=== PATIENT | male | born 1940 | race Caucasian/White ===

== ENCOUNTER → 2018-09-08 | Outpatient (CLI) | payer MEDICARE ==
[2018-09-08 10:34] LABS: HEMATOCRIT 38 % (40-54); HEMOGLOBIN 12.5 G/DL (13.3-17.7); MEAN CORPUSCULAR HEMOGLOBIN 32 PG (25-34); MEAN CORPUSCULAR HGB CONC 33 G/DL (32-36); MEAN CORPUSCULAR VOLUME 97 FL (80-99); RED CELL DISTRIBUTION WIDTH 12.5 % (10.0-14.5); WHITE BLOOD COUNT 5.4 10^3/uL (4.3-11.0)
[2018-09-08 10:35] LABS: BASOPHILS % (AUTO) 1 % (0-10); EOSINOPHILS # (AUTO) 0.1 10^3/uL (0.0-0.3); EOSINOPHILS % (AUTO) 1 % (0-10); LYMPHOCYTES # (AUTO) 1.1 X 10^3 (1.0-4.0); LYMPHOCYTES % (AUTO) 19 % (12-44); MEAN PLATELET VOLUME 10.6 FL (7.4-10.4); MONOCYTES # (AUTO) 0.5 X 10^3 (0.0-1.0); MONOCYTES % (AUTO) 9 % (0-12); NEUTROPHILS # (AUTO) 3.7 X 10^3 (1.8-7.8); NEUTROPHILS % (AUTO) 69 % (42-75); PLATELET COUNT 208 10^3/uL (130-400)
[2018-09-08 10:47] LABS: POTASSIUM 4.2 MMOL/L (3.6-5.0); SODIUM 140 MMOL/L (135-145)
[2018-09-08 10:48] LABS: ALANINE AMINOTRANSFERASE 11 U/L (0-55); ALBUMIN 4.7 GM/DL (3.2-4.5); ALKALINE PHOSPHATASE 58 U/L (40-136); BILIRUBIN,TOTAL 0.6 MG/DL (0.1-1.0); BUN/CREATININE RATIO 13; CALCIUM 9.2 MG/DL (8.5-10.1); CARBON DIOXIDE 27 MMOL/L (21-32); CHLORIDE 102 MMOL/L (98-107); CREATININE SERUM 0.84 MG/DL (0.60-1.30); GFR ESTIMATED > 60; GLUCOSE 94 MG/DL (70-105); TOTAL PROTEIN 6.9 GM/DL (6.4-8.2)
--- NOTE | 2018-09-08 11:16 | Diagnostic Imaging Report ---
PROCEDURE: CT chest without contrast. TECHNIQUE: Multiple contiguous axial images were obtained through the chest without the use of intravenous contrast. Auto Exposure Controls were utilized during the CT exam to meet ALARA standards for radiation dose reduction. INDICATION: Lung cancer with previous right-sided lobectomy. FINDINGS: There are postthoracotomy changes to the right ribs posteriorly. No acute chest wall pathology. Single lobe in the right is present believed to be the lower lobe. This contains a densely calcified benign nodule measuring 11 mm. There are postsurgical changes to the right pulmonary hilum. There is a focal largely airspace opacity in the lingular segment of the left upper lobe measuring 12 mm. This did not have a significant soft tissue component; however, given the history and the absence of priors to confirm its stability, I would suggest that lesion's followup in 3-6 months. There are no pathological appearing thoracic lymph nodes. The aorta is nonaneurysmal. There are coronary arterial atherosclerotic calcifications. There is no pleural or pericardial effusion. The upper abdomen demonstrates probable right renal parapelvic cysts, nonfocal adrenals and apparent cyst in the left lobe of the liver anteriorly measuring 1 cm. IMPRESSION: 1. A subsolid airspace density in lingular segment of the left upper lobe anteriorly 12 mm, likely a focal area of scarring, atelectasis or on an inflammatory basis. Neoplasm could not be definitively excluded and given the absence of priors, followup CT within 6 months time recommended. 2. Postoperative change on the right. No thoracic effusion or lymphadenopathy. Dictated by: Dictated on workstation # [id number]
== END ==
LOC: RAD FS 09:52
PROVIDERS: ATTEND Internal Medicine Hematology & Oncology
DX: C34.11 Malignant neoplasm of upper lobe, right bronchus or lung (principal); Z90.2 Acquired absence of lung [part of]
CPT/HCPCS: 36415; 71250; 80053; 83615; 85025

== ENCOUNTER 2019-03-05 20:23 | Emergency (ER) | payer MEDICARE ==
[~2019-03-05] VITALS: Ht 172.7 cm; Wt 76.1 kg
[2019-03-05] MEDS ORDERED: predniSONE 20 MG TAB PO ONE (20:45)
--- NOTE | 2019-03-05 20:45 | ED EENT ---
History of Present Illness General Chief Complaint: Oral/Throat Problems Stated Complaint: SORENESS IN THROAT- THINKS SOMETHING IS STUCK Source: patient, family Exam Limitations: no limitations History of Present Illness Date Seen by Provider: Mar 05, 2019 Time Seen by Provider: 20:40 Initial Comments feeling of something swelling in the back of his throat.....moving around. No difficulty breathing or swallowing. Denies that he swallowed anything or concern that something is lodged in throat Allergies and Home Medications Allergies Coded Allergies: No Known Drug Allergies (Unverified , 03/05/19) Home Medications Prednisone 50 Mg Tab, 50 MG PO DAILY Prescribed by: JAY SANTIAGO on 03/05/192045 Patient Home Medication List Home Medication List Reviewed: Yes Review of Systems Review of Systems Constitutional: No dizziness, No fever, No malaise Nose: denies congestion, denies epistaxis, denies pain Mouth: denies loose teeth, denies pain; swelling; denies bloody discharge, denies clear discharge, denies purulent discharge, denies serosanguinous discharge, denies previous injury Throat: see HPI; denies pain; swelling; denies discharge, denies neck stiffness, denies hoarse, denies aphonia, denies muffled, denies painful swallowing, denies difficulty with fluids, denies previous injury Respiratory: see HPI; No cough, No dyspnea on exertion, No hemoptysis, No orthopnea, No phlegm, No short of breath, No stridor, No wheezing Cardiovascular: no symptoms reported Gastrointestinal: no symptoms reported Past Cmetblb-Jszlbj-Yurvoz Hx Past Med/Social Hx: Reviewed Nursing Past Med/Soc Hx Patient Social History Recent Foreign Travel: No Contact w/Someone Who Travel: No Physical Exam Vital Signs Vital Signs - First Documented 03/05/19 20:25 Temp 37.3 Pulse 108 Resp 18 B/P (MAP) 153/93 (113) Pulse Ox 98 O2 Delivery Room Air Height, Weight, BMI Height: '" Weight: lbs. oz. kg; BMI Method: General Appearance: WD/WN, no apparent distress; No mild distress Nose: normal inspection Mouth/Throat: No dental tenderness, No excessive drooling, No foreign body, No mandibular swelling, No maxillary swelling, No pharynx swelling, No tongue swollen, No tonsillar swelling, No trismus; uvula swelling; No voice changes Neck: non-tender, full range of motion, supple, normal inspection Cardiovascular: regular rate, rhythm Respiratory: chest non-tender, lungs clear, normal breath sounds Progress/Results/Core Measures Results/Orders My Orders Orders - JAY SANTIAGO DO Prednisone Tablet (Deltasone Tablet) (03/05/19 20:45) Medications Given in ED Current Medications Medications Dose Ordered Sig/Blessing Route Start Time Stop Time Status Last Admin Dose Admin Prednisone 50 mg ONCE ONCE PO 03/05/19 20:45 03/05/19 20:46 DC 03/05/19 20:54 50 MG Vital Signs/I&O 03/05/19 20:25 Temp 37.3 Pulse 108 Resp 18 B/P (MAP) 153/93 (113) Pulse Ox 98 O2 Delivery Room Air Departure Impression Primary Impression: Uvulitis Disposition: 01 HOME, SELF-CARE Condition: Stable Departure-Patient Inst. Decision time for Depature: 20:46 Referrals: MAGNOLIA LENNON MD (PCP/Family) Primary Care Physician Patient Instructions: Viral Pharyngitis (DC) Scripts Prednisone (Prednisone) 50 Mg Tab 50 MG PO DAILY, #5 TAB Prov: JAY SANTIAGO DO 03/05/19 JAY SANTIAGO DO Mar 05, 2019 20:44 POS
[2019-03-05] MEDS ORDERED: PRD50T PO (20:46)
[2019-03-05 21:26] VITALS: BP 153/93
== END 2019-03-05 21:26 | disposition home or self-care (01) ==
LOC: EDUNIT# 20:23 → ER FS 20:24
DX: K12.2 Cellulitis and abscess of mouth (principal)
CPT/HCPCS: 99283

== ENCOUNTER → 2019-04-23 | Outpatient (CLI) | payer MEDICARE ==
[~2019-04-23] MED LIST: PRD50T PO
--- NOTE | 2019-04-23 11:00 | Diagnostic Imaging Report ---
CT CHEST WO TECHNIQUE: Multiple contiguous axial images were obtained through the chest without the use of intravenous contrast. All CT scans use one or more of the following dose optimizing techniques: automated exposure control, MA and/or KvP adjustment based on a patient size and exam type, or iterative reconstruction. INDICATION: Lung cancer. Surveillance imaging. COMPARISON: 09/08/2018 FINDINGS: Lungs and airway: No endoluminal nodule within the trachea. Stable postoperative changes of right middle and upper lobectomies. There is compensatory hyperaeration of the right lower lobe. Calcified granuloma within the right posterior midlung zone is unchanged. The spiculated nodular focus of scarring/atelectasis within the lingula is unchanged measuring 12 mm in size. No new pulmonary nodule or mass to suggest recurrent or metastatic disease. Pleura: No pleural effusion or pneumothorax. Heart and mediastinum: No supraclavicular or axillary lymphadenopathy. No mediastinal, hilar or juxtaphrenic lymphadenopathy. The distal esophagus is normal in appearance. Ectatic ascending aorta measuring 4.8 cm is stable in size. Coronary artery calcifications are unchanged. Upper abdomen: There are 2 simple cysts within the liver that are stable and less than 1 cm in size. Indeterminate 3 cm hypodensity in the posterior inferior right hepatic lobe is stable. Musculoskeletal: No lytic or blastic skeletal lesions. IMPRESSION: 1. No change in CT chest to indicate recurrent or metastatic disease. 2. Stable indeterminate 3 cm hypodensity in the posterior right hepatic lobe. This may represent benign process but does not meet criteria for simple cyst. If prior outside imaging is available, this would be most beneficial to assess long-term stability. Otherwise, recommend CT of abdomen with and without contrast per the liver protocol for prior assessment. Dictated by: Dictated on workstation # [id number]
== END ==
LOC: RAD FS 09:42
PROVIDERS: ATTEND Internal Medicine Hematology & Oncology
DX: C34.11 Malignant neoplasm of upper lobe, right bronchus or lung (principal); K76.89 Other specified diseases of liver
CPT/HCPCS: 71250

== ENCOUNTER 2021-08-13 08:11 | Observation (INO) | payer MEDICARE ==
[~2021-08-13] VITALS: Ht 180 cm; Wt 72.0 kg
[2021-08-13] VITALS (8 sets, daily range): BP systolic 134–180; BP diastolic 76–103
--- NOTE | 2021-08-13 08:31 | ED Neurological Problem ---
General Stated Complaint: STROKE-LIKE SYMPTOMS History of Present Illness Date Seen by Provider: August 13, 2021 Time Seen by Provider: 08:18 Initial Comments 80-year-old male brought in due to some confusion. Patient was brought in by his son. Patient reports that normally [place] the [place] and comes by his son's house. That he did not show up this morning so the son went by to check on him. Reports that he is got some mild new left- sided facial droop, and some confusion. Patient reports that his coffee was made in his breakfast without cold but he did eat it. He reports that he normally gets up around 5 to 5:30 AM. Patient was last seen normal around last night. He has some mild difficulty with his gait. Patient son states that he is just not acting himself and is much more confused than normal. Allergies and Home Medications Allergies Coded Allergies: No Known Drug Allergies (Unverified , 03/05/19) Patient Home Medication List Home Medication List Reviewed: Yes Prednisone (Prednisone) 50 Mg Tab, 50 MG PO DAILY Prescribed by: JAY SANTIAGO on 03/05/192045 Review of Systems Review of Systems Constitutional: see HPI; No chills, No fever Eyes: No Symptoms Reported Ears, Nose, Mouth, Throat: see HPI Respiratory: No cough, No short of breath Cardiovascular: No chest pain, No palpitations Gastrointestinal: No abdominal pain, No nausea, No vomiting Genitourinary: no symptoms reported Musculoskeletal: see HPI Skin: no symptoms reported Psychiatric/Neurological: See HPI, Weakness Endocrine: No Symptoms Reported Past Wzxytfq-Evehcr-Xfpfho Hx Seasonal Allergies Seasonal Allergies: No Past Medical History Surgeries: Yes (Right Hip) Appendectomy Respiratory: No Cardiac: No Neurological: No Genitourinary: No Gastrointestinal: No Musculoskeletal: No Endocrine: No HEENT: No Cancer: Yes Lung Psychosocial: No Integumentary: No Physical Exam Vital Signs Vital Signs - First Documented 08/13/21 08:16 Temp 36.3 Pulse 65 Resp 20 B/P (MAP) 187/93 (124) Pulse Ox 96 O2 Delivery Room Air Capillary Refill : Height, Weight, BMI Height: '" Weight: lbs. oz. kg; 25.00 BMI Method: General Appearance: WD/WN, no apparent distress HEENT: PERRL/EOMI Neck: non-tender Respiratory: lungs clear, normal breath sounds, no respiratory distress Cardiovascular: normal peripheral pulses, regular rate, rhythm Gastrointestinal: non tender, soft Extremities: normal range of motion Neurologic/Psychiatric: alert; No sensory deficit Crainal Nerves: normal hearing, PERRL, facial asymmetry (mild left sided droop ) Coordination/Gait: abnormal gait (unsteady) Motor/Sensory: no motor deficit, no sensory deficit Skin: normal color, warm/dry Stroke NIH Stroke Scale Assessment Select: Initial Level of Consciousness: 0=Alert (0), Level of Consciousness- Questions: 0=Answers both month/age (0), LOC Commands: 0=Performs both tasks (0), Gaze: Normal (0), Visual Shrestha: 0=No visual loss (0), Facial Movement (Facial Paresis): 1=Minor paralysis (1), Motor Function-Arms Right: 0=No drift (0), Motor Function-Arms Left: 0=No drift (0), Motor Function-Legs Right: 0=No drift (0), Motor Function-Legs Left: 0=No drift (0), Limb Ataxia: 0=Absent (0), Sensory: 0=Normal:no loss (0), Best Language: 1=Mild to moderat aphasia (1), Dysarthria: 0=Normal (0), Extinction & Inattention: 0=No abnormality (0), Total: 2 Progress/Results/Core Measures Results/Orders Lab Results Laboratory Tests Test 08/13/21 08:18 08/13/21 08:33 Range/Units White Blood Count 5.6 4.3-11.0 10^3/uL Red Blood Count 3.95 L 4.30-5.52 10^6/uL Hemoglobin 12.6 L 13.3-17.7 g/dL Hematocrit 38 L 40-54 % Mean Corpuscular Volume 97 80-99 fL Mean Corpuscular Hemoglobin 32 25-34 pg Mean Corpuscular Hemoglobin Concent 33 32-36 g/dL Red Cell Distribution Width 12.2 10.0-14.5 % Platelet Count 226 130-400 10^3/uL Mean Platelet Volume 10.5 9.0-12.2 fL Immature Granulocyte % (Auto) 0 % Neutrophils (%) (Auto) 68 42-75 % Lymphocytes (%) (Auto) 20 12-44 % Monocytes (%) (Auto) 9 0-12 % Eosinophils (%) (Auto) 1 0-10 % Basophils (%) (Auto) 1 0-10 % Neutrophils # (Auto) 3.8 1.8-7.8 10^3/uL Lymphocytes # (Auto) 1.1 1.0-4.0 10^3/uL Monocytes # (Auto) 0.5 0.0-1.0 10^3/uL Eosinophils # (Auto) 0.1 0.0-0.3 10^3/uL Basophils # (Auto) 0.1 0.0-0.1 10^3/uL Immature Granulocyte # (Auto) 0.0 0.0-0.1 10^3/uL Sodium Level 139 135-145 MMOL/L Potassium Level 4.0 3.6-5.0 MMOL/L Chloride Level 103 98-107 MMOL/L Carbon Dioxide Level 27 21-32 MMOL/L Anion Gap 9 5-14 MMOL/L Blood Urea Nitrogen 17 7-18 MG/DL Creatinine 0.83 0.60-1.30 MG/DL Estimat Glomerular Filtration Rate 87 BUN/Creatinine Ratio 20 Glucose Level 103 70-105 MG/DL Calcium Level 9.5 8.5-10.1 MG/DL Corrected Calcium 8.5-10.1 MG/DL Total Bilirubin 0.4 0.1-1.0 MG/DL Aspartate Amino Transf (AST/SGOT) 11 5-34 U/L Alanine Aminotransferase (ALT/SGPT) 9 0-55 U/L Alkaline Phosphatase 68 40-136 U/L Troponin I < 0.30 <0.30 NG/ML Total Protein 7.0 6.4-8.2 GM/DL Albumin 4.6 H 3.2-4.5 GM/DL Glucometer 90 70-110 MG/DL My Orders Orders - DAVID,BARBARA L DO Cbc With Automated Diff (08/13/21 08:22) Protime With Inr (08/13/21 08:22) Partial Thromboplastin Time (08/13/21 08:22) Comprehensive Metabolic Panel (08/13/21 08:22) Fibrin Degradation Products (08/13/21 08:22) Troponin I Fs (08/13/21 08:22) Ua Culture If Indicated (08/13/21 08:22) Chest 1 View Ap/Pa Only (08/13/21 08:22) Ekg Tracing (08/13/21 08:22) Nothing By Mouth (08/13/21 Breakfast) Accucheck Stat ONCE (08/13/21:22) Ed Iv/Invasive Line Start (08/13/21 08:22) Ed Iv/Invasive Line Start (08/13/21 08:22) Vital Signs Stroke Patient Q15M (08/13/21 08:22) Ct Head Wo-R/O Stroke (08/13/21 08:22) Intake & Output 06,14,22 (08/13/21 08:22) Monitor-Rhythm Ecg Trace Only (08/13/21 08:22) Dysphagia Screening Tool Q10MX1 (08/13/21 08:) Lipid Panel (08/14/21 06:00) Vital Signs/I&O 08/13/21 08:16 Temp 36.3 Pulse 65 Resp 20 B/P (MAP) 187/93 (124) Pulse Ox 96 O2 Delivery Room Air Initial ECG Impression Date: August 13, 2021 Initial ECG Impression Time: 08:26 Initial ECG Rate: 64 Initial ECG Rhythm: Normal Sinus Initial ECG Intervals: Normal Initial ECG Impression: Normal Diagnostic Imaging Diagonstic Imaging: Xray Plain Films/CT/US/NM/MRI: chest Comments Date of Exam:08/13/21 CHEST 1 VIEW AP/PA ONLY HISTORY: Confusion, altered mental status COMPARISON: CT from 04/23/2019 TECHNIQUE: Frontal view of the chest. FINDINGS: Lung volumes are mildly low. There is airspace opacity in the left lung base. There are old right-sided rib fractures. The cardiac silhouette is normal in size. No pleural effusion or pneumothorax is seen. IMPRESSION: 1. Left basilar airspace opacity, may represent atelectasis or infection. Reviewed: Reviewed by Me, Reviewed/Discussed CT Results/Progress Notes Date of Exam:08/13/21 CT HEAD WO-R/O STROKE PROCEDURE: CT head wo r/o stroke. TECHNIQUE: Multiple contiguous axial images were obtained through the brain without the use of intravenous contrast. Auto Exposure Controls were utilized during the CT exam to meet ALARA standards for radiation dose reduction. INDICATION: Cerebral vascular accident FINDINGS: Ventricles and sulci are diffusely prominent. There is low-density throughout the cerebral white matter which is somewhat greater on the right. There is no evidence of intracranial hemorrhage. There is no abnormal mass effect or shift of midline structures. Calvarium is intact and the visualized paranasal sinuses are clear IMPRESSION: Diffuse volume loss and white matter findings are somewhat more pronounced on the right. Otherwise, no definite acute abnormalities identified however MRI has greater sensitivity for detection of infarction in the acute setting. Departure Impression Primary Impression: Transient cerebral ischemia Qualified Codes: G45.9 - Transient cerebral ischemic attack, unspecified Disposition: 30 STILL A PATIENT Condition: Stable Admissions Decision to Admit Reason: Admit from ER (General) Decision to Admit/Date: August 13, 2021 Time/Decision to Admit Time: 09:14 Departure-Patient Inst. Referrals: MAGNOLIA LENNON MD (PCP) Primary Care Physician BARBARA DAVID DO August 13, 2021 08:31
[2021-08-13 08:33] LABS: BASOPHILS # (AUTO) 0.1 10^3/uL (0.0-0.1); BASOPHILS % (AUTO) 1 % (0-10); EOSINOPHILS # (AUTO) 0.1 10^3/uL (0.0-0.3); EOSINOPHILS % (AUTO) 1 % (0-10); HEMATOCRIT 38 % (40-54); HEMOGLOBIN 12.6 g/dL (13.3-17.7); LYMPHOCYTES # (AUTO) 1.1 10^3/uL (1.0-4.0); LYMPHOCYTES % (AUTO) 20 % (12-44); MEAN CORPUSCULAR HEMOGLOBIN 32 pg (25-34); MEAN CORPUSCULAR HGB CONC 33 g/dL (32-36); MEAN CORPUSCULAR VOLUME 97 fL (80-99); MEAN PLATELET VOLUME 10.5 fL (9.0-12.2); MONOCYTES # (AUTO) 0.5 10^3/uL (0.0-1.0); MONOCYTES % (AUTO) 9 % (0-12); NEUTROPHILS # (AUTO) 3.8 10^3/uL (1.8-7.8); NEUTROPHILS % (AUTO) 68 % (42-75); PLATELET COUNT 226 10^3/uL (130-400); WHITE BLOOD COUNT 5.6 10^3/uL (4.3-11.0)
--- NOTE | 2021-08-13 08:38 | Diagnostic Imaging Report ---
PROCEDURE: CT head wo r/o stroke. TECHNIQUE: Multiple contiguous axial images were obtained through the brain without the use of intravenous contrast. Auto Exposure Controls were utilized during the CT exam to meet ALARA standards for radiation dose reduction. INDICATION: Cerebral vascular accident FINDINGS: Ventricles and sulci are diffusely prominent. There is low-density throughout the cerebral white matter which is somewhat greater on the right. There is no evidence of intracranial hemorrhage. There is no abnormal mass effect or shift of midline structures. Calvarium is intact and the visualized paranasal sinuses are clear IMPRESSION: Diffuse volume loss and white matter findings are somewhat more pronounced on the right. Otherwise, no definite acute abnormalities identified however MRI has greater sensitivity for detection of infarction in the acute setting. Dictated by: Dictated on workstation # [id number]
--- NOTE | 2021-08-13 08:49 | Diagnostic Imaging Report ---
HISTORY: Confusion, altered mental status COMPARISON: CT from 04/23/2019 TECHNIQUE: Frontal view of the chest. FINDINGS: Lung volumes are mildly low. There is airspace opacity in the left lung base. There are old right-sided rib fractures. The cardiac silhouette is normal in size. No pleural effusion or pneumothorax is seen. IMPRESSION: 1. Left basilar airspace opacity, may represent atelectasis or infection. Dictated by: Dictated on workstation # [id number]
[2021-08-13 09:02] LABS: CARBON DIOXIDE 27 MMOL/L (21-32); CHLORIDE 103 MMOL/L (98-107); SODIUM 139 MMOL/L (135-145)
[2021-08-13 09:03] LABS: ALANINE AMINOTRANSFERASE 9 U/L (0-55); ALBUMIN 4.6 GM/DL (3.2-4.5); ALKALINE PHOSPHATASE 68 U/L (40-136); BILIRUBIN,TOTAL 0.4 MG/DL (0.1-1.0); BUN/CREATININE RATIO 20; CALCIUM 9.5 MG/DL (8.5-10.1); CREATININE SERUM 0.83 MG/DL (0.60-1.30); GFR ESTIMATED 87; GLUCOSE 103 MG/DL (70-105)
[2021-08-13] MEDS ORDERED: TEMA15CA PO (09:29)
[2021-08-13] MEDS ORDERED: FINA5TAB6 PO (09:32)
[2021-08-13] MEDS ORDERED: PRAV40TA2 PO (09:32)
[2021-08-13] MEDS ORDERED: OXYC1TAB16 PO (09:32)
[2021-08-13] MEDS ORDERED: MELO5CAP3 PO (09:32)
[2021-08-13 10:17] LABS: FIBRIN DEGRADATION PRODUCTS 0.36 UG/ML (0.00-0.49); INR 0.9 (0.8-1.4); PROTHROMBIN TIME PATIENT 12.1 SEC (12.2-14.7)
[2021-08-13] MEDS ORDERED: ONDANSETRON 4 MG (ZOFRAN) ORAL DISSOLVE TAB PO PRN (11:30)
[2021-08-13] MEDS ORDERED: ONDANSETRON 4 MG/2 ML (SDV) Z0FRAN IV PRN (11:30)
[2021-08-13] MEDS ORDERED: diphenhydrAMINE 50 MG/ML INJ (BENADRYL) IVP PRN (11:30)
[2021-08-13] MEDS ORDERED: ANTACID SUSP 30 ML UDC (MYLANTA) PO PRN (11:30)
[2021-08-13] MEDS ORDERED: BISACODYL 10 MG SUPP (DULCOLAX) PR PRN (11:30)
[2021-08-13] MEDS ORDERED: NS IV 1000 ML 1,000 ML IV SCH (11:30)
[2021-08-13] MEDS ORDERED: polyethylene glycoL POWDER 17 GM (MIRALAX) PACK PO PRN (11:30)
[2021-08-13] MEDS ORDERED: diphenhydrAMINE 25 MG TAB (BENADRYL) PO PRN (11:30)
[2021-08-13] MEDS ORDERED: ACETAMINOPHEN 325 MG TABLET PO PRN (11:30)
[2021-08-13] MEDS ORDERED: MELATONIN 3 MG TABLET PO PRN (11:30)
[2021-08-13] MEDS ORDERED: morphine INJ 4 MG/ML 1 ML (VIAL/SYRINGE) IV PRN (11:30)
--- NOTE | 2021-08-13 11:36 | History & Physical-Hospitalist ---
History of Present Illness HPI/Chief Complaint Chief complaint: TIA versus CVA History present illness: This is an 80-year-old male clinic patient of [facility] who presented to the [place] ER with altered mental status by his son with facial droop. NIH score was assessed to be 2. CT scan showed no evidence of any acute issues only chronic changes. It was recommended due to the altered mental status for admission for restratification. Carotid ultrasound and MRI will be obtained along with lipid profile PT and OT and speech therapy and cardiology consultation well maintained on telemetry and echocardiogram will be obtained. Source: patient, family, RN/MD Date Seen 08/13/21 Time Seen by a Provider: 12:15 Attending Physician Meg Walton Pankaj K MD Referring Physician Date of Admission August 13, 2021 at 10:32 Home Medications & Allergies Home Medications Reviewed patient Home Medication Reconciliation performed by pharmacy medication reconciliations alignment technician and/or nursing. Patients Allergies have been reviewed. Allergies Allergies Coded Allergies No Known Drug Allergies (Sqawzmmbdx78/22/19) Past Exjgzgg-Lsknwn-Uhxghm Hx Patient Social History Marrital Status: Employed/Student: retired Tobacco Use?: No Smoking Status: Former Smoker Substance use?: No Alcohol Use?: Yes Alcohol type: Wine Alcohol Frequency: Rarely Pt feels they are or have been: No Immunizations Up To Date Date of Influenza Vaccine: Feb 12, 2019 First/Initial COVID19 Vaccinat: Yes Second COVID19 Vaccination Lamin: Yes Seasonal Allergies Seasonal Allergies: No Current Status Advance Directives: No Primary Language: Lao Preferred Spoken Language: Lao Past Medical History Surgeries: Appendectomy High Cholesterol Benign Prostatic Hyperpl Lung Review of Systems Constitutional: see HPI, malaise, weakness EENTM: no symptoms reported Respiratory: no symptoms reported Cardiovascular: no symptoms reported Gastrointestinal: no symptoms reported Genitourinary: no symptoms reported Musculoskeletal: no symptoms reported Psychiatric/Neurological: Anxiety, Depressed Physical Exam Physical Exam Vital Signs Vital Signs - First Documented 08/13/21 08/13/21 08:16 15:03 Temp 36.3 Pulse 65 Resp 20 B/P (MAP) 187/93 (124) Pulse Ox 96 O2 Delivery Room Air FiO2 21 Capillary Refill : Less Than 3 Seconds Height, Weight, BMI Height: '" Weight: lbs. oz. kg; 24.00 BMI Method: General Appearance: No Apparent Distress, Chronically ill Eyes: Right Eye Normal Inspection, Right Eye PERRL HEENT: PERRL/EOMI, Normal ENT Inspection, Pharynx Normal, Moist Mucous Membranes Neck: Full Range of Motion, Normal Inspection, Non Tender Respiratory: Chest Non Tender, Lungs Clear, Normal Breath Sounds, No Accessory Muscle Use, No Respiratory Distress Cardiovascular: Regular Rate, Rhythm, No Edema, No Gallop, No JVD, No Murmur, Normal Peripheral Pulses Gastrointestinal: Normal Bowel Sounds, No Organomegaly, No Pulsatile Mass, Non Tender, Soft Back: Normal Inspection, No CVA Tenderness, No Vertebral Tenderness Extremity: Normal Capillary Refill, Normal Inspection, Normal Range of Motion, Non Tender, No Calf Tenderness, No Pedal Edema Neurologic/Psychiatric: Alert, Oriented x3, No Motor/Sensory Deficits, Normal Mood/Affect Skin: Normal Color, Warm/Dry Lymphatic: No Adenopathy Results Results/Procedures Labs Laboratory Tests 08/13/21 08:18 Patient resulted labs reviewed. Assessment/Plan Admission Diagnosis Assessment: Altered mental status TIA versus CVA Hyperlipidemia BPH Aortic aneurysm Plan: Supportive care Carotid ultrasound and MRI CT scan Admission Status: Observation Diagnosis/Problems Diagnosis/Problems (1) Transient cerebral ischemia Status: Acute Qualifiers: Transient cerebral ischemia type: unspecified Qualified Codes: G45.9 - Transient cerebral ischemic attack, unspecified MEG WALTON DO August 13, 2021 11:36
[2021-08-13] MEDS ORDERED: TEMAZEPAM 15 MG (RESTORIL) CAP PO PRN (11:45)
--- NOTE | 2021-08-13 12:03 | Consultation-Cardiology ---
HPI-Cardiology Cardiology Consultation Date of Consultation 08/13/21 Date of Admission Time Seen by Provider: 11:30 Indication: TIA HPI Patient is a very pleasant 80 y/o male with history of HTN, HLP, extobaccoism. Presented to the ER in [place] with son with complaints of confusion. Patient reports episode this morning of confusion and inability to answer his phone. As noted in medical records, patients son went to check on him this morning after patient did not answer his phone and noticed that patient appeared to be confused and had some difficulty speaking. Episode now resolved. Denies any chest pain, dyspnea, dizziness or lightheadedness. Denies any previous hx of CAD or arrhythmia. Home Medications & Allergies Allergies: Coded Allergies: No Known Drug Allergies (Unverified , 03/05/19) VZT-Xsrsli-Ssptgg Hx Patient Social History Marital Status: Employed/Student: retired Smoking Status: Former Smoker 2nd Hand Smoke Exposure: No Have you traveled recently?: No Alcohol Use?: Yes Immunizations Up To Date Date of Influenza Vaccine: Feb 12, 2019 Past Medical History HTN, HLP Review of Systems-General Review of Systems Constitutional: see HPI; No chills, No fever Respiratory: No cough, No short of breath Cardiovascular: No chest pain, No palpitations Gastrointestinal: No abdominal pain, No nausea, No vomiting Genitourinary: no symptoms reported Musculoskeletal: see HPI Skin: no symptoms reported Reviewed Test Results Reviewed Test Results Lab Laboratory Tests 08/13/21 08:18: White Blood Count 5.6, Red Blood Count 3.95L, Hemoglobin 12.6L, Hematocrit 38L, Mean Corpuscular Volume 97, Mean Corpuscular Hemoglobin 32, Mean Corpuscular Hemoglobin Concent 33, Red Cell Distribution Width 12.2, Platelet Count 226, Mean Platelet Volume 10.5, Immature Granulocyte % (Auto) 0, Neutrophils (%) (Auto) 68, Lymphocytes (%) (Auto) 20, Monocytes (%) (Auto) 9, Eosinophils (%) (Auto) 1, Basophils (%) (Auto) 1, Neutrophils # (Auto) 3.8, Lymphocytes # (Auto) 1.1, Monocytes # (Auto) 0.5, Eosinophils # (Auto) 0.1, Basophils # (Auto) 0.1, Immature Granulocyte # (Auto) 0.0, Prothrombin Time 12.1L, INR Comment 0.9, Activated Partial Thromboplast Time 30, D-Dimer 0.36, Sodium Level 139, Potassium Level 4.0, Chloride Level 103, Carbon Dioxide Level 27, Anion Gap 9, Blood Urea Nitrogen 17, Creatinine 0.83, Estimat Glomerular Filtration Rate 87, BUN/Creatinine Ratio 20, Glucose Level 103, Calcium Level 9.5, Corrected Calcium , Total Bilirubin 0.4, Aspartate Amino Transf (AST/SGOT) 11, Alanine Aminotransferase (ALT/SGPT) 9, Alkaline Phosphatase 68, Troponin I < 0.30, Total Protein 7.0, Albumin 4.6H 08/13/21 08:33: Glucometer 90 08/13/21 11:50: Glucometer 97 ECG Impression ECG Initial ECG Rhythm: Normal Sinus Physical Exam Physical Exam Vital Signs Vital Signs - First Documented 08/13/21 08/13/21 08:16 15:03 Temp 36.3 Pulse 65 Resp 20 B/P (MAP) 187/93 (124) Pulse Ox 96 O2 Delivery Room Air FiO2 21 Capillary Refill : Less Than 3 Seconds Height, Weight, BMI Height: '" Weight: lbs. oz. kg; 24.00 BMI Method: General Appearance: No Apparent Distress, WD/WN HEENT: PERRL/EOMI, Normal ENT Inspection Neck: Non Tender, Supple; No Carotid Bruit Respiratory: Chest Non Tender, Lungs Clear, Normal Breath Sounds, No Accessory Muscle Use, No Respiratory Distress Cardiovascular: Regular Rate, Rhythm, No JVD, No Murmur Gastrointestinal: Non Tender, Soft Back: No CVA Tenderness Extremity: Non Tender, No Calf Tenderness, No Pedal Edema Neurologic/Psychiatric: Alert, Oriented x3, price clerk II-XII Norm as Tested Skin: Normal Color A/P-Cardiology Admission Diagnosis TIA HTN HLP Extoboccosim Assessment/Plan TIA with confusion and aphasia, now resolved. CT head was negative. EKG showing SR, will continue on telemetry I will evaluate 2D Echo, carotid duplex. Started on ASA, consider MRI head. HTN, starting patient on losartan 25mg daily, continue to monitor BP/HR HLP, has been maintained on statin as outpatient. Extobaccoism Thank you for allowing us to participate in the management of Mr. Andrade. This is Marilyn Mejia PA-C, as a scribe for Dr. Garcia. Patient was seen and evaluated with Marilyn, he was reporting improvement, denied any chest pain or palpitation. Work-up showed enlarged ascending thoracic aorta on echo, I proceeded with CT angiogram of the chest which showed thoracic aorta 4.7 cm. Started on losartan I added beta-blockers. Monitor lipids Monitor blood pressure MARILYN HOLLIDAY August 13, 2021 12:03 ABRAM GARCIA MD August 14, 2021 06:54
[2021-08-13] MEDS: LOSARTAN 25 MG (COZAAR) TAB PO SCH (12:25)
[2021-08-13] MEDS ORDERED: IOHEXOL 350 MG/ML 100 ML (OMNIPAQUE 350) VIAL IV ONE (12:30)
[2021-08-13] MEDS ORDERED: NS 100 ML (IVPB) BAG IV ONE (12:30)
--- NOTE | 2021-08-13 12:42 | Speech Therapy Progress Note ---
Therapy Progress Note Speech Pathology received the consultation for a speech language evaluation and oropharyngeal swallowing assessment. Upon arrival, the RN stated the patient "passed" her RN Dysphagia Screening and does not have speech or language concerns at this time. The information was confirmed with the patient (and his daughter present at bedside), who stated he did not have concerns for speech pathology. As the patient reports he is at baseline, speech pathology will sign off at this time. TAMIKA CHIANG August 13, 2021 12:42
[2021-08-13] MEDS: meTOprolol 5 MG/5 ML (LOPRESSOR) VIAL IV SCH ×2 (13:04→17:43)
--- NOTE | 2021-08-13 13:14 | Diagnostic Imaging Report ---
PROCEDURE: CT angiography of the abdomen and chest with and without contrast. TECHNIQUE: After intravenous administration of contrast, thin section axial CT angiography of the abdomen and chest were obtained. 3D MIP reformats were provided. Auto Exposure Controls were utilized during the CT exam to meet ALARA standards for radiation dose reduction. INDICATION: Thoracic aortic aneurysm. Correlation is made with CT chest study from 04/23/2019. CT angiogram chest: Ascending thoracic aorta measures 4.7 cm AP compared with 4.6 cm on prior exam. Aortic arch and descending thoracic aorta are normal caliber. There is no dissection identified. No chan-aortic fluid collection is seen. The central pulmonary arteries are dilated which can be owing to a component of pulmonary hypertension. No pericardial or pleural fluid identified. Some irregular density in the lingula is noted which appears slightly more prominent on today's study at 17 mm compared with 13 mm. There are some emphysematous changes in both lungs. Right posterior rib deformities are noted. CT angiogram abdomen: There are some circumscribed low-attenuation lesions in the liver which likely represent cysts. There is a peripherally enhancing lesion in the medial right lower lobe suggestive of a hemangioma. Gallbladder is unremarkable. There is no biliary ductal dilatation. Pancreas and spleen appear stable. No adrenal mass is detected. Kidneys appear stable. Abdominal aorta is nonaneurysmal. No dissection is seen. There is no ascites. Bowel loops are normal caliber. IMPRESSION: 1. Stable mild aneurysmal dilatation of the ascending thoracic aorta. No dissection is seen. 2. Dilatation of the pulmonary arteries, perhaps on the basis of a pulmonary hypertension. 3. Slight increase in size of an irregular density in the lingula. Correlation with PET/CT study would be useful to evaluate for hypermetabolism. 4. Stable hepatic lesions which appear benign. 5. No evidence of abdominal aortic aneurysm or dissection. Dictated by: Dictated on workstation # [id number]
[2021-08-13] MEDS: ENOXAPARIN 40 MG/0.4 ML (LOVENOX) SYR SC SCH (14:19)
--- NOTE | 2021-08-13 14:21 | Diagnostic Imaging Report ---
PROCEDURE: MR imaging of the brain without contrast. TECHNIQUE: Multiplanar, multisequence MR imaging of the brain was performed without contrast. INDICATION: Altered mental status. Confusion. COMPARISON: CT head without contrast 08/13/2021. FINDINGS: Examination limited by motion. Moderate generalized parenchymal volume loss. Moderate to advanced nonspecific T2 hyperintensities in the supratentorial white matter compatible with chronic small vessel ischemic change. No restricted water diffusion. Hemosiderin deposition on the left external capsule compatible with prior hemorrhage. No evidence of acute intracranial hemorrhage. Normal morphology including the major midline structures, sella, posterior fossa and cerebellar pontine angle. Normal intracranial flow voids. No hydrocephalus or extra-axial fluid collections. Postoperative changes in the globes. Paranasal sinuses and mastoids are unremarkable. Normal bone marrow signal. IMPRESSION: 1. No acute intracranial MRI findings. Specifically, no evidence of acute infarction or hemorrhage. 2. Hemosiderin deposition in the left external capsule consistent with remote prior hemorrhage. 3. Moderate generalized parenchymal volume loss. Moderate to advanced chronic small vessel ischemic change. Dictated by: Dictated on workstation # [id number]
--- NOTE | 2021-08-13 14:57 | Occ Therapy Progress Note ---
Therapy Progress Note OT orders received and chart reviewed. OT visited with pt and family member who indicate pt is at PLOF and they have no concerns with pt's ability to complete showering, LB dressing, toileting, and other self care tasks. Pt independent with toileting and footwear. Pt ambulated in hallways with PT, no AD, pt feels like he is at baseline with ambulation. Pt would also be independent with eating and oral care per report and clinical judgment, pt had been NPO due to procedures so not formally tested at this time. OT informed pt if he has further concerns to let his nurse know and new OT orders can be sent. Discharge from OT at this time due to pt being at PLOF with mobility and self care. 1, visit D/C from OT EHSAN MCGOVERN OT August 13, 2021 14:57
--- NOTE | 2021-08-13 15:05 | Physical Therapy Evaluation ---
PT Evaluation-General Medical Diagnosis Admission Date August 13, 2021 at 10:32 Medical Diagnosis: TIA vs CVA Onset Date: August 13, 2021 Therapy Diagnosis Therapy Diagnosis: Impaired balance, activity tolerance Precautions Precautions/Isolations: Fall Prevention, Standard Precautions Referral Physician: Isabelle Reason for Referral: Evaluation/Treatment Medical History Additional Medical History Surgeries: Appendectomy. High Cholesterol Benign Prostatic Hyperpl Reviewed History: Yes Social History Home: Multilevel Current Living Status: Alone Entry Into Home: Stairs With Railing PT Steps Into Home: 3 Prior Prior Level of Function SCALE: Activities may be completed with or without assistive devices. 7-Vcqghyjxro-zvbgypp completes the activity by him/herself with no assistance from a helper. 5-Set-up or Clean-up Assistance-helper sets up or cleans up; patient completes activity. [place] assists only prior to or following the activity. 4-Supervision or Touching Assistance-helper provides verbal cues and/or touching/steadying and/or contact guard assistance as patient completes activity. Assistance may be provided throughout the activity or intermittently. 3-Partial/Moderate Assistance-helper does LESS THAN HALF the effort. [place] lifts, holds or supports trunk or limbs, but provides less than half the effort. 2-Substantial/Maximal Assistance-helper does MORE THAN HALF the effort. [place] lifts or holds trunk or limbs and provides more than half the effort. 0-Wzybhljqa-lhvsow does ALL the effort. Patient does none of the effort to complete the activity. Or, the assistance of 2 or more helpers is required for the patient to complete the activity. If activity was not attempted, code reason: 7-Patient Refused. 9-Not Applicable-not attempted and the patient did not perform the activity before the current illness, exacerbation or injury. 10-Not Attempted due to Environmental Limitations-(lack of equipment, weather restraints, etc.). 88-Not Attempted due to Medical Conditions or Safety Concerns. Bed Mobility: 6 Transfers (B,C,W/C): 6 Gait: 6 Stairs: 6 Indoor Mobility (Ambulation): Independent Stairs: Independent Prior Devices Use: None PT Evaluation-Current Subjective Patient reports that he just returned from having an MRI done. Patient's daughter was in room as well. Patient was compliant to start treatment. Pain Numeric Pain Scale: 0-No Pain Objective Patient Orientation: Person, Place, Situation Attachments: IV Telemetry, BP cuff, SPO2 monitor ROM/Strength ROM Lower Extremities Grossly WFL bilaterally Strength Lower Extremities L LE: (hip flexion 4+/5, Knee extension 4+/5, Knee flexion 4+/5, DF 4/5); R LE: (hip flexion 4+/5, Knee extension 4+/5, Knee flexion 4+/5, DF 4/5) Integumentary/Posture Bowel Incontinence: No Bladder Incontinence: No Neuromuscular (Tone, Coordination, Reflexes) Babinski negative, Clonus negative, no abnormalities noted with: peripheral vision, vxkymk-go-jtwn coordination, eye tracking. Sensory Vision: Functional Hearing: Functional Sensation Right Lower Extremit: Intact Sensation Left Lower Extremity: Intact Transfers Lying to Sitting/Side of Bed(Q: 6 Sit to Stand (QC): 6 Gait Does the Patient Walk?: Yes Mode of Locomotion: Walk Anticipated Mode of Locomotion: Walk Walk 10 feet (QC): 4 Walk 50 ft with 2 Turns(QC): 4 Walk 150 ft (QC): 4 Distance: 500' Gait Assistive Device: None Comments/Gait Description Normal gait pattern and gait speed Wheelchair Training Does the Pt Use a Wheelchair?: No Balance Sitting Static: Normal Sitting Dynamic: Normal Standing Static: Good Standing Dynamic: Good Treatment transfers, ambulation Assessment/Needs Patient presented with good strength equally on both sides with no neurological abnormalities noted at this time. Patient was able to ambulate long distances without an assistive device and without a rest period. Patient showed good strength with transfers. He was left in bed with call light, tray, and all needs met. 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[employer] Goals PT Fdc Goals Time Frame: August 20, 2021 Roll Left & Right (QC): 6 Sit to Lying (QC): 6 Lying-Sitting on Side/Bed(QC): 6 Sit to Stand (QC): 6 Chair/Ndt-sv-Andmo Xfer(QC): 6 Toilet Transfer (QC): 6 Walk 10 feet (QC): 6 Walk 50ft with 2 Turns (QC): 6 Walk 150 ft (QC): 6 PT Plan Problem List Problem List: Activity Tolerance, Functional Strength, Safety, Balance, Gait, Transfer, ROM Treatment/Plan Treatment Plan: Continue Plan of Care Treatment Plan: Bed Mobility, Education, Functional Activity Roderick, Functional Strength, Gait, Safety, Therapeutic Exercise, Transfers Treatment Duration: August 20, 2021 Frequency: 6 times per week Estimated Hrs Per Day: .25 hour per day Patient and/or Family Agrees t: Yes Safety Risks/Education Patient Education: Gait Training, Transfer Techniques, Correct Positioning, Safety Issues Teaching Recipient: Patient Teaching Methods: Demonstration, Discussion Response to Teaching: Verbalize Understanding, Return Demonstration Discharge Recommendations Plan Patient will perform strengthening and balance training and functional mobility training and education to improve functional mobility and independence at home. Therapy Discharge Recommendati: Home & Family Time/GCodes Time In: 1430 Time Out: 1445 Total Billed Treatment Time: 15 Total Billed Treatment 1 visit EVL 15min YRIS TYLER PT August 13, 2021 15:05
[2021-08-13] MEDS ORDERED: RT-ALBUTEROL SULF 2.5 MG/3 ML PRE-MIX VIAL INH PRN (15:15)
--- NOTE | 2021-08-13 17:07 | Diagnostic Imaging Report ---
INDICATION: Transient ischemic attacks. TECHNIQUE: Carotid Doppler study performed in the routine fashion with color flow Doppler and waveform analysis. FINDINGS: There is minimal plaquing visualized in the carotid bifurcations on both sides. Velocities and ratios are within normal range, with ICA/CCA systolic velocity ratio of 1.0 on the right side and 0.99 on the left side. Both vertebrals show antegrade flow. Parameters based on the consensus panel Chacon-Scale and Doppler ultrasound criteria published February 2003, Radiology, Volume 229. DOPPLER (peak systolic velocity M/S Right Left CCA .67 .63 ICA Proximal .45 .38 ICA Mid .52 .63 ICA Distal .68 .60 RATIO 1.0 .99 ECA .39 .75 VERT .47 .35 IMPRESSION: Minimal plaquing in the carotid bifurcations with no significant stenosis hemodynamically. Both vertebrals are patent. Dictated by: Dictated on workstation # [id number]
[2021-08-13] MEDS: DOCUSATE SODIUM 100 MG (COLACE) CAP PO SCH (21:00)
[2021-08-14] MEDS: meTOprolol 5 MG/5 ML (LOPRESSOR) VIAL IV SCH ×2 (00:03→06:00)
[2021-08-14 04:00] VITALS: BP 153/96
[2021-08-14 04:22] LABS: BASOPHILS # (AUTO) 0.1 10^3/uL (0.0-0.1); BASOPHILS % (AUTO) 1 % (0-10); EOSINOPHILS % (AUTO) 1 % (0-10); HEMATOCRIT 38 % (40-54); HEMOGLOBIN 12.4 g/dL (13.3-17.7); LYMPHOCYTES # (AUTO) 0.7 10^3/uL (1.0-4.0); LYMPHOCYTES % (AUTO) 11 % (12-44); MEAN CORPUSCULAR HEMOGLOBIN 32 pg (25-34); MEAN CORPUSCULAR HGB CONC 33 g/dL (32-36); MEAN CORPUSCULAR VOLUME 98 fL (80-99); MEAN PLATELET VOLUME 10.8 fL (9.0-12.2); MONOCYTES # (AUTO) 0.4 10^3/uL (0.0-1.0); MONOCYTES % (AUTO) 6 % (0-12); NEUTROPHILS # (AUTO) 4.8 10^3/uL (1.8-7.8); NEUTROPHILS % (AUTO) 81 % (42-75); PLATELET COUNT 219 10^3/uL (130-400)
[2021-08-14 04:43] LABS: ALBUMIN 4.4 GM/DL (3.2-4.5); POTASSIUM 3.9 MMOL/L (3.6-5.0)
[2021-08-14 04:44] LABS: CALCIUM 9.1 MG/DL (8.5-10.1)
[2021-08-14 04:46] LABS: TOTAL PROTEIN 6.8 GM/DL (6.4-8.2)
[2021-08-14 04:47] LABS: BILIRUBIN,TOTAL 0.7 MG/DL (0.1-1.0)
[2021-08-14 04:49] LABS: CREATININE SERUM 0.76 MG/DL (0.60-1.30)
--- NOTE | 2021-08-14 05:17 | Progress Note - Hospitalist ---
Subjective HPI/CC On Admission Date Seen by Provider: August 14, 2021 Time Seen by Provider: 09:00 Chief complaint: TIA versus CVA History present illness: This is an 80-year-old male clinic patient of [facility] who presented to the [place] ER with altered mental status by his son with facial droop. NIH score was assessed to be 2. CT scan showed no evidence of any acute issues only chronic changes. It was recommended due to the altered mental status for admission for restratification. Carotid ultrasound and MRI will be obtained along with lipid profile PT and OT and speech therapy and cardiology consultation well maintained on telemetry and echocardiogram will be obtained. Objective Exam Vital Signs Vital Signs Date Time Temp Pulse Resp B/P (MAP) Pulse Ox O2 Delivery O2 Flow Rate FiO2 08/14/21 14:15 08/14/21 11:32 36.5 78 16 96 Room Air 08/13/21 15:03 21 Capillary Refill : Less Than 3 Seconds Results/Procedures Lab Patient resulted labs reviewed. Diagnosis/Problems Diagnosis/Problems (1) Transient cerebral ischemia Status: Acute Qualifiers: Transient cerebral ischemia type: unspecified Qualified Codes: G45.9 - Transient cerebral ischemic attack, unspecified MISTY ROSENBERG DO August 14, 2021 05:17
--- NOTE | 2021-08-14 07:31 | Cardiology Progress Note ---
Subjective Date Seen by Provider: August 14, 2021 Time Seen by Provider: 07:26 Subjective/Events-last exam Patient was seen at bedside, sitting comfortably in bed. Asking to go home. Review of Systems General: No Chills, No Night Sweats; Fatigue; No Malaise, No Appetite, No Other HEENT: No Head Aches, No Visual Changes, No Eye Pain, No Ear Pain, No Dysphasia, No Sinus Congestion, No Post Nasal Drip, No Sore Throat, No Other Pulmonary: No Dyspnea, No Cough, No Pleuritic Chest Pain, No Other Cardiovascular: No: Chest Pain, Palpitations, Orthopnea, Paroxysmal Noc. Dyspnea, Edema, Lt Headedness, Other Objective-Cardiology Exam Last Set of Vital Signs Vital Signs 08/13/21 08/13/21 08/14/21 08/14/21 15:03 22:39 00:00 04:00 Temp 36.9 Pulse 62 Resp 14 B/P (MAP) 153/96 (115) Pulse Ox 92 O2 Delivery Room Air FiO2 21 I&O Intake and Output 08/14/21 00:00 Intake Total 900 ml Output Total 1700 ml Balance -800 ml Intake Oral 900 ml Output Urine Total 1700 ml # Voids 3 Daily Weight Change No General: Alert, Oriented X3, Cooperative HEENT: Atraumatic, PERRLA Neck: Supple, No JVD, No Thyromegaly Lungs: Clear to Auscultation, Normal Air Movement Heart: Regular Rate, Normal S1, Normal S2, Other (Systolic murmur at the left sternal border) Abdomen: Normal Bowel Sounds, Soft, No Tenderness, No Hepatosplenomegaly, No Masses Extremities: No Clubbing, No Cyanosis, No Edema, Normal Pulses, No Tenderness /Swelling Skin: No Rashes, No Breakdown, No Significant Lesion Neuro: Normal Gait, Normal Speech, Strength at 5/5 X4 Ext, Normal Tone, Sensation Intact Psych/Mental Status: Mental Status NL, Mood NL Results Lab Laboratory Tests 08/13/21 08:18 08/14/21 04:10 A/P-Cardiology Admission Diagnosis TIA HTN HLP Extoboccosim Assessment/Plan TIA with confusion and aphasia, now resolved. CT head was negative. EKG showing SR, will continue on telemetry I will evaluate 2D Echo, carotid duplex. Started on ASA Carotid ultrasound showed mild disease with some plaquing. There is no significant obstructive disease MRI of the head reported as no acute intracranial MRI finding. There is some deposit at the left external capsule consistent with remote prior hemorrhage, moderate parenchymal volume loss with advanced chronic small vessel ischemic changes. 2D echo was done on August 13, 2021 showing normal LV size with ejection fraction 55 to 65%, grade 2 diastolic dysfunction, left atrial dilatation 5.4 cm, thoracic aortic aneurysm with dilated ascending aorta, mild mitral regurgitation, PA pressure [address] angiogram of the chest reported ascending thoracic aorta is aneurysmal 4.7 cm, the previous study from April 2019 reported 4.6 cm. No significant change. Pulmonary nodule was reported. Hypertension, poor control, started on losartan 25 mg daily, adding metoprolol and evaluate tolerance and response Hyperlipidemia, maintained on pravastatin 40 mg, LDL 100, I will switch pravastatin to Lipitor 20 mg and evaluate tolerance and response Extobaccoism ABRAM DEGROOT MD August 14, 2021 07:31
[2021-08-14 07:39] VITALS: BP 169/101
[2021-08-14 08:30] VITALS: BP 176/109
[2021-08-14] MEDS: DOCUSATE SODIUM 100 MG (COLACE) CAP PO SCH (08:36)
[2021-08-14] MEDS ORDERED: ASPIRIN 325 MG (5 GR) TABLET PO SCH (09:00)
[2021-08-14] MEDS ORDERED: MELOXICAM 7.5 MG (MOBIC) TABLET PO SCH (09:00)
[2021-08-14] MEDS ORDERED: CLOPIDOGREL 75 MG (PLAVIX) TABLET PO SCH (09:00)
[2021-08-14] MEDS ORDERED: ASPIRIN 81 MG CHEW (CHILDREN'S ASA) PO SCH (09:00)
[2021-08-14] MEDS ORDERED: FINASTERIDE (PROSCAR) 5 MG TAB PO SCH (09:00)
[2021-08-14] MEDS: LOSARTAN 25 MG (COZAAR) TAB PO SCH (09:03)
[2021-08-14] MEDS ORDERED: PRAV40TA2 PO (09:08)
[2021-08-14] MEDS ORDERED: ASPI81TA64 PO (09:08)
[2021-08-14] MEDS ORDERED: LOSA25TA41 PO (09:08)
[2021-08-14] MEDS ORDERED: MTP25TSR PO (09:08)
[2021-08-14] MEDS ORDERED: CLOP75TA28 PO (09:08)
--- NOTE | 2021-08-14 09:10 | Discharge Summary ---
Discharge Summary Hospital Course Was the Problem List Reviewed?: Yes Problems/Dx: (1) Transient cerebral ischemia Status: Acute Qualifiers: Qualified Codes: G45.9 - Transient cerebral ischemic attack, unspecified Hospital Course Date of Admission: August 13, 2021 at 10:32 Admission Diagnosis : Family Physician/Provider: Johann You MD Date of Discharge: 08/14/21 Discharge Diagnosis: Altered mental status, aortic aneurysm, cognitive deficit Hospital Course: Pt had a brief hospital course after he was admitted for TIA vs stroke. MRI was obtained no evidence of stroke. Dr. Garcia was consulted. Diangosed with aortic aneurysm. 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 SLUMS score was performed he had a score of 12 out of 30. Indicative of a significant cognitive deficit. I was not comfortable with him driving, so a DMV form was filled out to that effect. I did update Dr. You and updated pt's son. It doesn't appear he has any DPOA together. He did meet criteria for ivy psych but doesn't appear that there is any DPOA in place. I would recommend guardianship and I did update the son regarding this. Labs and Pending Lab Test: Laboratory Tests 08/13/21 11:50: Glucometer 97 08/14/21 04:10: White Blood Count 6.0, Red Blood Count 3.90L, Hemoglobin 12.4L, Hematocrit 38L, Mean Corpuscular Volume 98, Mean Corpuscular Hemoglobin 32, Mean Corpuscular Hemoglobin Concent 33, Red Cell Distribution Width 12.0, Platelet Count 219, Mean Platelet Volume 10.8, Immature Granulocyte % (Auto) 0, Neutrophils (%) (Auto) 81H, Lymphocytes (%) (Auto) 11L, Monocytes (%) (Auto) 6, Eosinophils (%) (Auto) 1, Basophils (%) (Auto) 1, Neutrophils # (Auto) 4.8, Lymphocytes # (Auto) 0.7L, Monocytes # (Auto) 0.4, Eosinophils # (Auto) 0.0, Basophils # (Auto) 0.1, Immature Granulocyte # (Auto) 0.0, Sodium Level 138, Potassium Level 3.9, Chloride Level 103, Carbon Dioxide Level 24, Anion Gap 11, Blood Urea Nitrogen 12, Creatinine 0.76, Estimat Glomerular Filtration Rate 90, BUN/Creatinine Ratio 16, Glucose Level 101, Calcium Level 9.1, Corrected Calcium 8.8, Total Bilirubin 0.7, Aspartate Amino Transf (AST/SGOT) 10, Alanine Aminotransferase (ALT/SGPT) 10, Alkaline Phosphatase 54, Total Protein 6.8, Albumin 4.4, Triglycerides Level 121, Cholesterol Level 179, LDL Cholesterol Direct 100, VLDL Cholesterol 24, HDL Cholesterol 58, Thyroid Stimulating Hormone (TSH) 0.52 Home Meds Active Children's Aspirin (Aspirin) 81 Mg Tab.chew 81 Mg PO DAILY Losartan Potassium 25 Mg Tablet 25 Mg PO DAILY Metoprolol Succinate 25 Mg Tab.er.24h 25 Mg PO DAILY Clopidogrel (Clopidogrel Bisulfate) 75 Mg Tablet 75 Mg PO DAILY Pravastatin Sodium 40 Mg Tablet 40 Mg PO DAILY Reported Meloxicam (Meloxicam, Submicronized) 5 Mg Capsule 15 Mg PO DAILY Percocet 7.5-325 mg Tablet (Oxycodone HCl/Acetaminophen) 1 Each Tablet 1 Tab PO Q6H PRN MDD 4 TABS 7 Days Finasteride 5 Mg Tablet 5 Mg PO DAILY Temazepam 15 Mg Capsule 15 Mg PO HS Assessment/Pt Instructions PCP in 1 week Discharge Planning: <30 minutes discharge planning Discharge Instructions Discharge Diet: No Restrictions Activity as Tolerated: Yes Discharge Physical Examination Vital Signs Vital Signs Date Time Temp Pulse Resp B/P (MAP) Pulse Ox O2 Delivery O2 Flow Rate FiO2 08/14/21 08:30 63 10 176/109 (131) Room Air 08/14/21 07:39 36.3 95 08/13/21 15:03 21 General Appearance: No Apparent Distress, WD/WN, Chronically ill Allergies: Coded Allergies: No Known Drug Allergies (Unverified , 03/05/19) Discharge Summary Date of Admission August 13, 2021 at 10:32 Date of Discharge Discharge Date: August 14, 2021 Admission Diagnosis Assessment: Altered mental status TIA versus CVA Hyperlipidemia BPH Aortic aneurysm Plan: Supportive care Carotid ultrasound and MRI CT scan Discharge Diagnosis (1) Transient cerebral ischemia Status: Acute Qualifiers: Qualified Codes: G45.9 - Transient cerebral ischemic attack, unspecified MISTY ROSENBERG DO August 14, 2021 09:09
[2021-08-14 11:00] VITALS: BP 138/92
[2021-08-14] MEDS: ENOXAPARIN 40 MG/0.4 ML (LOVENOX) SYR SC SCH (11:08)
[2021-08-14 11:32] VITALS: BP 138/92
== END 2021-08-14 14:20 | disposition home or self-care (01) ==
LOC: EDUNIT# 08:11 → ER FS 08:12 → CSD 10:32
PROVIDERS: ADMIT Internal Medicine; ATTEND Internal Medicine
DX: G45.9 Transient cerebral ischemic attack, unspecified (principal); R41.82 Altered mental status, unspecified; I71.9 Aortic aneurysm of unspecified site, without rupture; I34.0 Nonrheumatic mitral (valve) insufficiency; I10 Essential (primary) hypertension; R41.89 Other symptoms and signs involving cognitive functions and awareness; E78.5 Hyperlipidemia, unspecified; N40.0 Benign prostatic hyperplasia without lower urinary tract symptoms; Z87.891 Personal history of nicotine dependence; Z79.899 Other long term (current) drug therapy
CPT/HCPCS: 36415 ×2; 70450; 70551; 71045; 71275; 74175; 80053 ×2; 80061; 82947; 84443; 84484; 85025 ×2; 85379; 85610; 85730; 93005; 93041; 93306; 93880; 96372; 96374; 96375; 96376; 97161; 99284; G0378